=== PATIENT | female | born 1980 | race Caucasian/White ===

== ENCOUNTER → 2018-01-30 | Outpatient (CLI) | payer OTHER ==
[~2018-01-30] MED LIST: ETON1VAG VG; GADOBUTROL 7.5 MMOL/7.5 ML VIAL INT ART ONE; IOHEXOL 300 MG/ML 50 ML VIAL. INT ART ONE; LIDOCAINE 1% Multi-Dose 20 ML VIAL. ID ONE; PREN1COM3 PO; VENL37.5 PO
--- NOTE | 2018-01-30 16:05 | KCIC ---
MR arthrogram of the right shoulder Indication: Constant sharp pain. Bursal history of labral tear. Comparison: November 17, 2013 Technique: Intra-articular contrast injected into the glenohumeral joint and is reported separately. Routine 4 plane sequences were obtained, including ABER positioning. FINDINGS: Artifact: Mild motion degradation. Acromioclavicular joint: Intact. Rotator cuff: * Supraspinatus-infraspinatus tendon: Mild heterogeneous signal compatible with mild tendinosis although motion could accentuate these findings. No significant tear. * Subscapularis tendon: Intact * Muscle bulk: Within normal limits * Subacromial subdeltoid bursa: No significant fluid or contrast accumulation. Articular cartilage: No acute cartilage defect or advanced DJD. Labrum: Small superior labral tear is again identified. Appears somewhat smaller on today's study may be due to granulation. Heterogeneity of the anteroinferior labrum is again identified, but less noticeable. No evidence of detachment or tear. Biceps tendon: Intact Bones: No lesion or acute fracture. Soft tissue: No acute findings. Impression: 1. Superior labral tear, again identified but slightly smaller. 2. Anteroinferior labral ligamentous irregularity is less apparent today, no evidence of associated tear or detachment. Electronically signed by: Alex Da Silva MD (01/30/2018 4:01 PM) [id number]
--- NOTE | 2018-01-30 16:43 | KCIC ---
PROCEDURE: Right shoulder injection using fluoroscopic guidance, prior to MR. HISTORY: Shoulder pain. TECHNIQUE: The procedure was explained to the patient as were potential risks, including among others infection, bleeding or allergic reaction. All questions were answered. Informed written and verbal consent was obtained. The shoulder was prepped and draped in the usual sterile manner. Following administration of local anesthetic, a 22-gauge needle was advanced into the anterior shoulder. Following negative aspiration, 12 cc of a solution of 5cc Omnipaque-300 contrast, 5 cc 1% lidocaine, 10 cc normal saline, and 0.1 cc gadolinium was injected without difficulty. The needle was removed. There was good hemostasis at the injection site. The patient left in stable condition without immediate complication. A single spot image is obtained. FLUOROSCOPY TIME:?20 seconds Electronically signed by: Alex Da Silva MD (01/30/2018 4:39 PM) [id number]
== END | disposition home or self-care (01) ==
LOC: KCIC 13:00
PROVIDERS: ATTEND Family Medicine
DX: S43.431D Superior glenoid labrum lesion of right shoulder, subsequent encounter (principal); X58.XXXD Exposure to other specified factors, subsequent encounter
CPT/HCPCS: 73040; 73222; A9585; Q9967